=== PATIENT | male | born 1985 ===

== ENCOUNTER 2019-11-14 22:58 | Emergency (ER) | payer SELFPAY ==
[2019-11-14 23:04] VITALS: BP 163/75; PULSE 75; RESP 18; TEMP 36.9; O2SAT 98
--- NOTE | 2019-11-14 23:24 | ED.DENTAL ---
HPI - Dental/Oral General Chief complaint: Dental/Oral Stated complaint: tooth ache Time Seen by Provider: 11/14/19 23:00 Source: patient Mode of arrival: Ambulatory Limitations: no limitations History of Present Illness HPI Narrative: 34-year-old male former smoker with chronic dental problems presents with a chief complaint of increasing pain of a 2 in his right upper molar for the past 2 days. He feels like he has a bit of swelling happening just above that to and has yet to establish with a local dentist. He denies any fever or chills. He denies any dizziness, weakness or lightheadedness. He has tried Tylenol and Motrin at home without much in the of success. MD Complaint: tooth pain Teeth map: 1. Onset (ago): day(s) Duration: constant Severity: moderate Relieving factors: nothing Exacerbating factors: chewing Context: history of dental caries Treatment prior to arrival: none Related Data Previous Rx's Medication Instructions Recorded amoxicillin-pot clavulanate 1 tab PO BID #20 tab 11/14/19 [Augmentin] ketorolac 10 mg PO Q6H PRN #14 tab 11/14/19 Review of Systems Constitutional Constitutional: Denies chills, Denies fatigue, Denies fever(s), Denies frequent falls, Denies lethargy and Denies weakness Eyes Eyes: Denies change in vision, Denies eye discharge, Denies irritation and Denies loss of vision ENT Ears, Nose, Mouth, and Throat: Denies change in voice, Reports dental pain, Denies dizziness, Reports facial pain, Denies neck pain, Denies sore throat and Denies throat swelling Cardiovascular Cardiovascular: Denies chest pain, Denies irregular heart rhythm, Denies lightheadedness, Denies palpitations, Denies dyspnea, Denies dyspnea on exertion and Denies orthopnea Respiratory Respiratory: Denies cough, Denies dyspnea, Denies dyspnea on exertion and Denies wheezing Gastrointestinal Gastrointestinal: Denies abdominal pain, Denies change in bowel habits, Denies diarrhea, Denies nausea and Denies vomiting Musculoskeletal Musculoskeletal: Denies neck pain and Denies numbness Integumentary/Breasts Skin/Breast: Denies pruritus, Denies erythema, Denies rash and Denies wounds Neurologic Neurologic: Denies behavioral changes, Denies confusion, Denies dizziness, Denies frequent falls, Denies loss of vision, Denies numbness and Denies weakness Psychiatric Psychiatric: Denies anxiety, Denies behavioral changes, Denies confusion, Denies depression, Denies homicidal ideation and Denies suicidal ideation Endocrine Endocrine: Denies fatigue, Denies flushing and Denies palpitations Hematologic/Lymphatic Hematologic/Lymphatic: Denies easy bruising Allergic/Immunologic Allergic/Immunologic: Denies urticaria, Denies throat swelling and Denies wheezing Patient History Smoking Status: Former smoker alcohol intake frequency: 0-2 drinks per day Substance Use Type: does not use Exam Narrative Exam Narrative: GEN: AOx3 and in mild distress EYES: Pupils are equal, round, and reactive to light and accommodation. Extraoccular muscles are intact bilaterally. There is no subconjunctival hemorrhage or exudate. ENT: Poor dentition throughout, fractured to right upper posterior molar, no obvious intraoral swelling or fluid collection consistent with abscess. There is some tenderness to palpation of his face near the zygoma and patient perceives swelling raising the suspicion of possible abscess CHEST: Lungs are clear to auscultation bilaterally and free of wheezes, rales, or rhonchi. Heart rate is regular rhythm, there are no murmurs, clicks, rubs, or gallops. There is no chest wall tenderness. ABD: Abdomen is soft and nontender. There is no guarding or rebound. Bowel sounds are normal in all 4 quadrants. There is no mass or organomegaly. EXT: Full painless ROM of all extremities with no loss of sensation or strength. SKIN: Warm, pink, and dry. No erythema or rash Initial Vital Signs Initial Vital Signs: Vital Signs Temperature 98.5 F 11/14/19 23:04 Pulse Rate 75 11/14/19 23:04 Respiratory Rate 18 11/14/19 23:04 Blood Pressure 163/75 H 11/14/19 23:04 Pulse Oximetry 98 11/14/19 23:04 Procedures Nerve Block Nerve Block 1: Time out performed: Yes Local Anesthetic: bupivacaine 0.25% and with epi Amount of anesthesia used (mL): 3 Side: right Intraoral Nerve Block: superior alveolar Procedure Successful: Yes Patient Tolerated Procedure: Well Complications: none Course Orders Ordered: Discontinued Medications Amoxicillin/Clavulanate Potassium (Augmentin 875-125 Mg) 1 tab PO NOW ONE Stop: 11/14/19 23:32 Last Admin: 11/14/19 23:35 Dose: 1 tab Documented by: AMADOU Bupivacaine HCl/Epinephrine Bitart (Sensorcaine 0.5% W/ Epi (Pf)) 5 ml SUBCUT NOW ONE Stop: 11/14/19 23:32 Last Admin: 11/14/19 23:35 Dose: 5 ml Documented by: AMADOU Vital Signs Vital signs: Vital Signs - 8 hr 11/14/19 23:04 11/14/19 23:50 Temperature 98.5 F 98.1 F Pulse Rate 75 66 Respiratory Rate 18 20 Blood Pressure 163/75 H 147/92 H Pulse Oximetry 98 99 Discharge Plan Departure Patient Disposition: Home Clinical Impression: Dental caries, Dental abscess Discharge Date/Time: 11/14/19 23:52 Instructions: Tooth Abscess, DI for Dental Pain Activity Restrictions/Additional Instructions: *You have been diagnosed with [dental pain, likely early dental abscess] *What to do: *Take medications as directed *Follow up with your dental provider in 2-3 days, call for an appointment. Let them know you were seen in the Emergency Department and that we ask that you be seen in follow up *Return to ER if you should have any new, worsening or concerning symptoms Prescriptions: New ketorolac 10 mg tablet 10 mg PO Q6H PRN (Reason: pain) Qty: 14 RF: 0 amoxicillin-pot clavulanate [Augmentin] 875-125 mg tablet 1 tab PO BID Qty: 20 RF: 0
[2019-11-14] MEDS: AMOXICILLIN/CLAV 875/125 MG 1 TAB PO (23:35)
[2019-11-14] MEDS: BUPIVACAINE 0.5% W/ EPI (PF) 30 ML VIAL 5 ML SUBCUT (23:35)
[2019-11-14 23:50] VITALS: BP 147/92; PULSE 66; RESP 20; TEMP 36.7; O2SAT 99
== END 2019-11-14 23:52 | disposition home or self-care (01) ==
PROVIDERS: Emergency Provider Emergency Medicine
DX: K02.9 Dental caries, unspecified (principal); K04.7 Periapical abscess without sinus
CPT/HCPCS: 64450; 99283